=== PATIENT | female | born 1955 | race Caucasian/White ===

== ENCOUNTER 2019-06-03 15:39 | Inpatient (IN) | payer MEDICARE, OTHER ==
[2019-06-03] MEDS ORDERED: POLY17PO4 PO (17:50)
[2019-06-03] MEDS ORDERED: LEVO50TA8 PO (17:50)
[2019-06-03] MEDS ORDERED: DOCU-141 PO (17:50)
[2019-06-03] MEDS ORDERED: CLON0.1T PO (17:50)
[2019-06-03] MEDS ORDERED: CHOL20004 PO (17:50)
[2019-06-03] MEDS ORDERED: REPA1TAB7 PO (17:50)
[2019-06-03] MEDS ORDERED: SEVE800T28 PO (17:50)
[2019-06-03] MEDS ORDERED: *INS REG3 IJ (17:50)
[2019-06-03] MEDS ORDERED: MINE133E RC (17:50)
[2019-06-03] MEDS ORDERED: METO25TA6 PO (17:50)
[2019-06-03] MEDS ORDERED: DIGO250T PO (17:50)
[2019-06-03] MEDS ORDERED: NITROGLYCERIN TP (17:50)
[2019-06-03] MEDS ORDERED: PATI8.4P PO (17:50)
[2019-06-03] MEDS ORDERED: AMLO5TAB4 PO (17:50)
[2019-06-03] MEDS ORDERED: VIT1TABL75 PO (17:50)
[2019-06-03] MEDS ORDERED: CRAN400C PO (17:50)
[2019-06-03] MEDS ORDERED: LEVOFLOXACIN 750 MG /D5W 150ML 150 ML IV ONE ×2 (19:00→19:17)
[2019-06-03] MEDS ORDERED: ZOLPIDEM TARTRATE 5 MG TABLET PO PRN (20:30)
[2019-06-03] MEDS ORDERED: Z GUARD REMEDY 2 OZ OINT TP PRN (20:30)
[2019-06-03] MEDS ORDERED: CLONIDINE HCL 0.1 MG TABLET PO PRN (20:30)
[2019-06-03] MEDS ORDERED: Medication Not On Formulary EA (Patiromer Calcium Sorbitex (Veltassa) 8.4 GM) PO SCH (20:30)
[2019-06-03] MEDS ORDERED: ACETAMINOPHEN 325 MG TABLET PO PRN (20:30)
[2019-06-03] MEDS ORDERED: MAG HYDROX/AL HYDROX/SIMETH 30 ML UDC PO PRN (20:30)
[2019-06-03] MEDS ORDERED: HYDROCODONE/APAP 5/325MG 1 EACH TABLET PO PRN (20:30)
[2019-06-03] MEDS ORDERED: ONDANSETRON HCL/PF 4 MG/2 ML VIAL IVP PRN (20:30)
[2019-06-03] MEDS ORDERED: MAGNESIUM HYDROXIDE 30 ML UDC PO PRN (20:30)
[2019-06-03] MEDS: *INSULIN REGULAR(HUMULIN R)HUM 100 UNIT/ML VIAL IJ SCH (22:00)
[2019-06-03] MEDS ORDERED: INSU100V7 SQ (22:28)
[2019-06-03] MEDS: BLOOD SUGAR DIAGNOSTIC 1 EACH STRIP IN SCH (22:47)
[2019-06-03] MEDS ORDERED: DEXTROSE 50%-WATER 50 ML DISP.SYRIN IV PRN (23:00)
[2019-06-03] MEDS ORDERED: INSULIN REGULAR, HUMAN 100 UNIT/ML 3 ML VIAL ONE (23:12)
[2019-06-03] MEDS ORDERED: NITROGLYCERIN PACKET 1 GM PACKET ONE (23:29)
[2019-06-03] MEDS: NITROGLYCERIN 30 GM TUBE TP SCH (23:30)
[2019-06-03] MEDS: INSULIN REGULAR, HUMAN 100 UNIT/ML 3 ML VIAL SQ PRN (23:39)
[2019-06-04] MEDS: BLOOD SUGAR DIAGNOSTIC 1 EACH STRIP IN SCH ×4 (07:15→21:28)
[2019-06-04] MEDS: INSULIN REGULAR, HUMAN 100 UNIT/ML 3 ML VIAL SQ PRN ×5 (07:17→21:40)
[2019-06-04] MEDS: *INSULIN REGULAR(HUMULIN R)HUM 100 UNIT/ML VIAL IJ SCH ×4 (07:30→22:00)
[2019-06-04] MEDS ORDERED: CRANBERRY 800 MG PO SCH (09:00)
[2019-06-04] MEDS ORDERED: DIGOXIN 0.25 MG TABLET PO SCH (09:00)
[2019-06-04] MEDS: MINERAL OIL 133 ML (PYXIS) 1 EA ENEMA RC SCH (09:00)
[2019-06-04] MEDS: NITROGLYCERIN 30 GM TUBE TP SCH ×2 (09:00→21:31)
[2019-06-04] MEDS: AMLODIPINE BESYLATE 5 MG TABLET PO SCH (09:00)
[2019-06-04] MEDS: VIT B CMPLX 3/FA/VIT C/BIOTIN 1 TAB TABLET PO SCH (09:58)
[2019-06-04] MEDS: LEVOTHYROXINE SODIUM 50 MCG TABLET PO SCH (09:58)
[2019-06-04] MEDS: CHOLECALCIFEROL 1,000 UNIT TABLET (VIT D3) PO SCH (09:58)
[2019-06-04] MEDS: SEVELAMER CARBONATE 800 MG TABLET PO SCH ×3 (09:59→17:19)
[2019-06-04] MEDS: POLYETHYLENE GLYCOL 3350 17 GM POWD.PACK PO SCH (09:59)
[2019-06-04] MEDS: DOCUSATE SODIUM 100 MG CAPSULE PO SCH ×2 (09:59→17:19)
[2019-06-04] MEDS: REPAGLINIDE 0.5 MG TABLET PO SCH ×2 (09:59→17:20)
[2019-06-04] MEDS: INSULIN GLARGINE, 100 UNIT/ML CARTRIDGE SQ SCH ×2 (10:00→21:30)
[2019-06-04] MEDS: METOPROLOL TARTRATE 25 MG TABLET PO SCH ×2 (17:00→17:20)
[2019-06-04] MEDS ORDERED: LEVOFLOXACIN 250 MG /D5W 50 ML 250 MG in PREMIX 1 EA IV SCH (18:00)
[2019-06-05] MEDS: BLOOD SUGAR DIAGNOSTIC 1 EACH STRIP IN SCH ×4 (06:42→21:39)
[2019-06-05] MEDS: INSULIN REGULAR, HUMAN 100 UNIT/ML 3 ML VIAL SQ PRN ×3 (06:44→17:45)
[2019-06-05] MEDS: *INSULIN REGULAR(HUMULIN R)HUM 100 UNIT/ML VIAL IJ SCH ×4 (07:30→21:47)
[2019-06-05] MEDS: AMLODIPINE BESYLATE 5 MG TABLET PO SCH (09:00)
[2019-06-05] MEDS: MINERAL OIL 133 ML (PYXIS) 1 EA ENEMA RC SCH (09:00)
[2019-06-05] MEDS: METOPROLOL TARTRATE 25 MG TABLET PO SCH ×2 (09:00→17:00)
[2019-06-05] MEDS: NITROGLYCERIN 30 GM TUBE TP SCH ×2 (09:00→21:45)
[2019-06-05] MEDS: POLYETHYLENE GLYCOL 3350 17 GM POWD.PACK PO SCH (09:20)
[2019-06-05] MEDS: CHOLECALCIFEROL 1,000 UNIT TABLET (VIT D3) PO SCH (09:21)
[2019-06-05] MEDS: VIT B CMPLX 3/FA/VIT C/BIOTIN 1 TAB TABLET PO SCH (09:21)
[2019-06-05] MEDS: REPAGLINIDE 0.5 MG TABLET PO SCH ×2 (09:22→17:43)
[2019-06-05] MEDS: DOCUSATE SODIUM 100 MG CAPSULE PO SCH ×2 (09:22→17:41)
[2019-06-05] MEDS: SEVELAMER CARBONATE 800 MG TABLET PO SCH ×3 (09:25→17:41)
[2019-06-05] MEDS: LEVOTHYROXINE SODIUM 50 MCG TABLET PO SCH (09:40)
[2019-06-05] MEDS: INSULIN GLARGINE, 100 UNIT/ML CARTRIDGE SQ SCH ×2 (09:40→21:38)
[2019-06-05] MEDS ORDERED: LEVOFLOXACIN 250 MG /D5W 50 ML 250 MG in PREMIX 1 EA IV SCH (18:00)
[2019-06-05] MEDS ORDERED: ALBUMIN 25% 12.5 GM/50 ML BOTTLE IV ONE (18:30)
[2019-06-05] MEDS ORDERED: ALBUMIN 25% 25 GM in PREMIX 1 EA IV ONE (19:00)
[2019-06-06] MEDS: BLOOD SUGAR DIAGNOSTIC 1 EACH STRIP IN SCH ×4 (06:26→22:11)
[2019-06-06] MEDS: INSULIN REGULAR, HUMAN 100 UNIT/ML 3 ML VIAL SQ PRN ×3 (06:27→17:21)
[2019-06-06] MEDS: *INSULIN REGULAR(HUMULIN R)HUM 100 UNIT/ML VIAL IJ SCH ×4 (07:30→22:00)
[2019-06-06] MEDS: CHOLECALCIFEROL 1,000 UNIT TABLET (VIT D3) PO SCH (08:36)
[2019-06-06] MEDS: VIT B CMPLX 3/FA/VIT C/BIOTIN 1 TAB TABLET PO SCH (08:36)
[2019-06-06] MEDS: LEVOTHYROXINE SODIUM 50 MCG TABLET PO SCH (08:37)
[2019-06-06] MEDS: AMLODIPINE BESYLATE 5 MG TABLET PO SCH (08:37)
[2019-06-06] MEDS: DOCUSATE SODIUM 100 MG CAPSULE PO SCH ×2 (08:37→17:12)
[2019-06-06] MEDS: METOPROLOL TARTRATE 25 MG TABLET PO SCH ×2 (08:38→17:13)
[2019-06-06] MEDS: SEVELAMER CARBONATE 800 MG TABLET PO SCH ×3 (08:38→17:12)
[2019-06-06] MEDS: POLYETHYLENE GLYCOL 3350 17 GM POWD.PACK PO SCH (08:40)
[2019-06-06] MEDS: REPAGLINIDE 0.5 MG TABLET PO SCH ×2 (08:40→17:14)
[2019-06-06] MEDS: INSULIN GLARGINE, 100 UNIT/ML CARTRIDGE SQ SCH ×2 (08:52→22:03)
[2019-06-06] MEDS: MINERAL OIL 133 ML (PYXIS) 1 EA ENEMA RC SCH (09:00)
[2019-06-06] MEDS: NITROGLYCERIN 30 GM TUBE TP SCH ×2 (10:24→22:01)
[2019-06-07] MEDS: BLOOD SUGAR DIAGNOSTIC 1 EACH STRIP IN SCH ×2 (06:39→12:08)
[2019-06-07] MEDS: *INSULIN REGULAR(HUMULIN R)HUM 100 UNIT/ML VIAL IJ SCH ×2 (06:44→12:00)
[2019-06-07] MEDS: INSULIN REGULAR, HUMAN 100 UNIT/ML 3 ML VIAL SQ PRN ×2 (06:47→12:09)
[2019-06-07] MEDS: METOPROLOL TARTRATE 25 MG TABLET PO SCH ×3 (08:09→16:02)
[2019-06-07] MEDS: AMLODIPINE BESYLATE 5 MG TABLET PO SCH ×2 (08:10→08:20)
[2019-06-07] MEDS: POLYETHYLENE GLYCOL 3350 17 GM POWD.PACK PO SCH (08:10)
[2019-06-07] MEDS: LEVOTHYROXINE SODIUM 50 MCG TABLET PO SCH (08:10)
[2019-06-07] MEDS: DOCUSATE SODIUM 100 MG CAPSULE PO SCH (08:10)
[2019-06-07] MEDS: VIT B CMPLX 3/FA/VIT C/BIOTIN 1 TAB TABLET PO SCH (08:10)
[2019-06-07] MEDS: SEVELAMER CARBONATE 800 MG TABLET PO SCH ×2 (08:10→12:08)
[2019-06-07] MEDS: CHOLECALCIFEROL 1,000 UNIT TABLET (VIT D3) PO SCH (08:10)
[2019-06-07] MEDS: INSULIN GLARGINE, 100 UNIT/ML CARTRIDGE SQ SCH (08:11)
[2019-06-07] MEDS: REPAGLINIDE 0.5 MG TABLET PO SCH (08:12)
[2019-06-07] MEDS: NITROGLYCERIN 30 GM TUBE TP SCH (08:12)
[2019-06-07] MEDS: MINERAL OIL 133 ML (PYXIS) 1 EA ENEMA RC SCH (08:13)
== END 2019-06-07 16:16 | disposition home health service (06) | DRG 640 ==
DX: E87.1 Hypo-osmolality and hyponatremia (principal); N18.6 End stage renal disease; E44.1 Mild protein-calorie malnutrition; Z68.41 Body mass index [BMI] 40.0-44.9, adult; I12.0 Hypertensive chronic kidney disease with stage 5 chronic kidney disease or end stage renal disease; E11.22 Type 2 diabetes mellitus with diabetic chronic kidney disease; Z99.2 Dependence on renal dialysis; D63.1 Anemia in chronic kidney disease; Z86.73 Personal history of transient ischemic attack (TIA), and cerebral infarction without residual deficits; E11.65 Type 2 diabetes mellitus with hyperglycemia; E03.9 Hypothyroidism, unspecified; E86.1 Hypovolemia; Z88.0 Allergy status to penicillin; Z99.3 Dependence on wheelchair